=== PATIENT | female | born 1930 | race African-American/Black ===

== ENCOUNTER 2018-12-26 22:22 | Inpatient (IN) ==
[2018-12-26] MEDS ORDERED: D50W SYRINGE IV ONE (22:51)
[2018-12-27 00:18] LABS: BASO# 0.01 X1000 (0.0-0.2); BASO% 0.1 % (0.0-0.8); EOS# 0.33 X1000 (0.0-0.7); EOS% 4.2 % (0.0-10.0); HEMOGLOBIN 12.1 g/dL (12.0-16.0); LYMPH% 31.5 % (20.5-51.1); MCH 26.5 PG (27-31); MCHC 31.8 g/dL (33-37); MCV 83.2 FL (81-99); MONO# 0.81 X1000 (0.11-0.59); MONO% 10.2 % (1.7-9.3); NEUT# 4.29 X1000 (1.4-6.5); PLT 139 X1000 (130-400); RBC 4.57 XMIL (4.2-5.4); RDW 16.7 % (11.5-14.5); WBC 7.94 X1000 (4.8-10.8)
[2018-12-27 00:37] LABS: AGAP 14; ALB/GLOB RATIO 0.9; ALBUMIN 3.4 g/dL (3.5-5.0); ALKALINE PHOSPHATASE 66 U/L (32-104); BUN 47 mg/dL (8-22); CALCIUM 9.2 mg/dL (8.8-10.2); CHLORIDE 104 mmol/L (98-107); CK PROFILE 137 U/L (24-173); COSMO 298; CREATININE 2.7 mg/dL (0.5-0.9); ESTIMATED GFR 20; GLUCOSE 73 mg/dL (70-104); GOT 30 U/L (10-30); GPT 18 U/L (10-36); MAGNESIUM 2.9 mg/dL (1.5-2.7); POTASSIUM 5.6 mmol/L (3.5-5.1); SODIUM 144 mmol/L (136-145); TCO2 26 mmol/L (25-35); TOTAL BILIRUBIN < 0.15 mg/dL (0.20-1.00); TOTAL PROTEIN 7.4 g/dL (6.3-8.3)
[2018-12-27 00:45] LABS: URINE SOURCE CATH
[2018-12-27] MEDS ORDERED: CALCIUM GLUCONATE IV PUSH ONE (01:09)
[2018-12-27] MEDS ORDERED: KAYEXALATE PO ONE (01:09)
[2018-12-27] MEDS ORDERED: DUONEB (A & A) INH ONE (01:09)
[2018-12-27 01:20] LABS: BILIRUBIN URINE NEGATIVE (NEGATIVE); BLOOD URINE NEGATIVE (NEGATIVE); COLOR YELLOW; GLUCOSE URINE NEGATIVE (NEGATIVE); KETONE URINE NEGATIVE (NEGATIVE); LEUKOCYTES URINE LARGE (NEGATIVE); NITRITE URINE NEGATIVE (NEGATIVE); PH URINE 5.5; PROTEIN URINE TRACE mg/dL (NEGATIVE); SP GRAVITY URINE 1.016; TURBIDITY URINE HAZY (CLEAR); UR EPITHELIAL CELLS <10 /HPF (<10); URINE BACTERIA 4+ /HPF; URINE RBC <10 /HPF (<10); URINE WBC TNTC /HPF (<10); UROBILINOGEN URINE 3 mg/dL (NORMAL)
--- NOTE | 2018-12-27 01:37 | PROVIDER DOCUMENTATION ---
This chart was entered by Teresa Robles Scribe, acting as scribe for Anastacio Stone MD. HPI-Cardiac General - General Chief Complaint: Palpitations Stated Complaint: chest pain Time Seen by Provider: 12/26/18 22:26 Source: patient Allergies/Adverse Reactions: Patient Allergies Allergy/AdvReac Type Severity Reaction Status Date / Time No Known Allergies Allergy Verified 10/07/18 08:07 Home Medications: Home Medication List Medication Instructions Recorded Confirmed Last Taken Type Amlodipine [Norvasc] 5 mg PO DAILY 09/15/14 10/15/18 04/12/18 History Furosemide 20 mg PO DAILY 09/15/14 10/15/18 04/12/18 History Lisinopril 20 mg PO DAILY 09/15/14 10/15/18 04/12/18 History PRAVAstatin [Pravachol] 40 mg PO QHS 09/15/14 10/15/18 04/12/18 History Aspirin EC 81 mg PO DAILY 04/13/18 10/15/18 04/12/18 History Insulin NPH Hum/Reg Insulin Hm 10 unit SQ BID 04/13/18 10/15/18 Unknown History [Humulin 70-30 Vial] Donepezil [Aricept] 10 mg PO QHS tablet 04/17/18 10/15/18 Unknown Rx Gabapentin [Neurontin] 100 mg PO BID capsule 04/17/18 10/15/18 Unknown Rx Memantine Xr [Namenda Xr] 28 mg PO DAILY capsule 04/17/18 10/15/18 Unknown Rx Ondansetron [Zofran Odt] 8 mg PO Q6H PRN PRN #12 tab.rapdis 10/07/18 10/15/18 Unknown Rx Amlodipine [Norvasc] 5 mg PO DAILY tablet 10/20/18 Unknown Rx Aspirin EC 81 mg PO DAILY tablet 10/20/18 Unknown Rx Clonidine [Catapres] 0.1 mg PO TID tablet 10/20/18 Unknown Rx Donepezil [Aricept] 10 mg PO QHS tablet 10/20/18 Unknown Rx Gabapentin [Neurontin] 100 mg PO BID capsule 10/20/18 Unknown Rx LISINOpril [Prinivil] 40 mg PO DAILY tablet 10/20/18 Unknown Rx Memantine Xr [Namenda Xr] 28 mg PO DAILY capsule 10/20/18 Unknown Rx PRAVAstatin [Pravachol] 40 mg PO QHS tablet 10/20/18 Unknown Rx - History of Present Illness-Cardiac Nature of Presenting Problem: Pt comes to ED via EMS. Pt was having chest pains at home and called EMS. EMS found that she has a heart rate in the 30's. She was given atropine 0.5mg and brought to ED . Chest pain has since resolved. Pt is poor historian and has hx of dementia and CVA/TIA Location: reports: other (No chest pain in ED) Quality of Pain: reports: none Severity in ED: mild Onset/Duration: just prior to arrival Timing: gone now Context/Activities at Onset: reports: none Modifying Factors: improves with: nothing History of arrythmia: reports: none Associated Symptoms: reports: denies symptoms Similar Symptoms Previously?: No Recently Seen Here or By Another Healthcare Provider: No Review of Systems - Adult - REVIEW OF SYSTEMS - ADULT ROS:: ROS per family Constitutional: reports: no symptoms reported Eyes: reports: no symptoms reported Ears, Nose, Mouth & Throat: reports: no symptoms reported Cardiovascular: reports: chest pain. denies: edema Respiratory: denies: chronic cough, cough Gastrointestinal: reports: no symptoms reported. denies: diarrhea, nausea, vomiting Genitourinary: reports: no symptoms reported Musculoskeletal: reports: no symptoms reported Integumentary: reports: no symptoms reported Neurological: reports: no symptoms reported. denies: dizziness/vertigo, headache/migraines Allergic/Immunologic: reports: no symptoms reported All Other Systems: Reviewed and Negative Past History - Adult - PAST MEDICAL HISTORY-ADULT Review of Records: reports: Old Records Reviewed, Nursing Assessment Review, Medications Reviewed, Social history reviewed & non-contributory. Major Childhood Illnesses: reports: denies history Cardiovascular: reports: cardiac disease, CHF, HTN, hyperlipidemia Respiratory: reports: denies history Gastrointestinal: reports: denies history Obstetrical/Gynecological: reports: denies history Genitourinary: reports: denies history Musculoskeletal: reports: denies history Neurological: reports: Alzheimer's, dementia, TIA Psychiatric: reports: denies history Endocrine/Immune: reports: Diabetes Other Conditions: reports: denies history - PRIOR SURGERIES/PROCEDURES Surgical/Procedure History: reports: hysterectomy - IMMUNIZATION STATUS Childhood Immunizations: See Nurse Assessment Flu Vaccine: See Nurse Assessment - FAMILY HISTORY Family History: reviewed, not pertinent - SOCIAL HISTORY Smoking: denies, non-smoker Substance Use: none/never Alcohol Use Frequency: never Living Situation: family Physical Exam-General - PHYSICAL EXAM-ADULT Initial Vital Signs Reviewed: Yes - CONSTITUTIONAL General Appearance: alert (pt is oriented to person), other (frail looking patient ,) - EYES Eyes: PERRL/EOMI - HEAD, EARS, NOSE, MOUTH & THROAT HENMT: normocephalic/atraumatic, moist mucous membranes - NECK Neck: non-tender, full range of motion, supple, normal inspection - RESPIRATORY Respiratory: chest non-tender, decreased breath sounds - CARDIOVASCULAR Cardiovascular: normal peripheral pulses, no edema, other (irregular heart rate) - GASTROINTESTINAL (ABDOMEN) Abdominal Exam: normal bowel sounds, non tender, soft - MUSCULOSKELETAL Extremity: other (slow to move; muscle strength of 3/5 in all 4 extremities) - SKIN Integumentary: normal color, warm/dry - PSYCHIATRIC Psych/Mental Status: negative: oriented x 3 (pt only oriented to person during exam) Progress - PLAN OF CARE/RESULTS Progress/Plan/Lab Results: Vital Signs - 8 hr 12/26/18 22:38 12/26/18 22:40 12/26/18 22:41 Temperature Pulse Rate 108 H 81 Respiratory Rate 14 16 Blood Pressure 140/52 O2 Sat by Pulse Oximetry 98 95 96 12/26/18 22:43 12/26/18 22:50 12/26/18 22:51 Temperature 97.9 F Pulse Rate 80 79 76 Respiratory Rate 14 12 19 Blood Pressure 140/52 120/44 O2 Sat by Pulse Oximetry 97 98 98 12/26/18 23:00 12/26/18 23:02 12/26/18 23:10 Temperature Pulse Rate 76 74 72 Respiratory Rate 13 15 14 Blood Pressure 104/50 O2 Sat by Pulse Oximetry 97 12/26/18 23:11 12/26/18 23:20 12/26/18 23:21 Temperature Pulse Rate 70 73 67 Respiratory Rate 16 20 16 Blood Pressure 110/53 117/55 O2 Sat by Pulse Oximetry 97 96 96 12/26/18 23:30 12/26/18 23:31 12/26/18 23:40 Temperature Pulse Rate 64 69 74 Respiratory Rate 18 17 21 Blood Pressure 122/71 O2 Sat by Pulse Oximetry 97 98 94 L 12/26/18 23:41 12/26/18 23:50 12/27/18 00:00 Temperature Pulse Rate 65 65 64 Respiratory Rate 13 15 14 Blood Pressure 121/53 O2 Sat by Pulse Oximetry 96 99 97 12/26/18 23:36 Influenza Screen - Final Nasopharyngeal Laboratory Results - last 24 hr 12/26/18 12/27/18 12/27/18 22:46 00:00 00:00 WBC 7.94 RBC 4.57 Hgb 12.1 Hct 38.0 MCV 83.2 MCH 26.5 L MCHC 31.8 L RDW Std Deviation 16.7 H Plt Count 139 MPV Not Reportable Neut % (Auto) 54.0 Lymph % (Auto) 31.5 Jewell % (Auto) 10.2 H Eos % (Auto) 4.2 Baso % (Auto) 0.1 Neut # (Auto) 4.29 Lymph # (Auto) 2.50 Jewell # (Auto) 0.81 H Eos # (Auto) 0.33 Baso # (Auto) 0.01 Sodium 144 Potassium 5.6 H Chloride 104 Carbon Dioxide 26 Anion Gap 14 BUN 47 H Creatinine 2.7 H Estimated GFR/1.73 m2 20 BUN/Creatinine Ratio 17 Glucose 73 POC Glucose 65 L D Calculated Osmolality 298 Calcium 9.2 Magnesium 2.9 H Total Bilirubin < 0.15 L AST 30 ALT 18 Alkaline Phosphatase 66 Creatine Kinase 137 Troponin T Sln-U-Pumonrccwfr Pept Total Protein 7.4 Albumin 3.4 L Globulin 4.0 Albumin/Globulin Ratio 0.9 Urine Source Urine Color Urine Turbidity Urine pH Ur Specific [place] Urine Protein Ur Glucose (Stick) Ur Ketones (Stick) Urine Blood Urine Nitrite Urine Bilirubin Urobilinogen Dipstick Urine Leukocytes Urine WBC (Auto) Urine RBC (Auto) U Epithel Cells (Auto) Urine Bacteria (Auto) 12/27/18 12/27/18 12/27/18 00:00 00:00 00:41 WBC RBC Hgb Hct MCV MCH MCHC RDW Std Deviation Plt Count MPV Neut % (Auto) Lymph % (Auto) Jewell % (Auto) Eos % (Auto) Baso % (Auto) Neut # (Auto) Lymph # (Auto) Jewell # (Auto) Eos # (Auto) Baso # (Auto) Sodium Potassium Chloride Carbon Dioxide Anion Gap BUN Creatinine Estimated GFR/1.73 m2 BUN/Creatinine Ratio Glucose POC Glucose Calculated Osmolality Calcium Magnesium Total Bilirubin AST ALT Alkaline Phosphatase Creatine Kinase Troponin T 0.023 Buo-B-Nvlilwjeidw Pept 1016 H Total Protein Albumin Globulin Albumin/Globulin Ratio Urine Source CATH Urine Color YELLOW Urine Turbidity HAZY Urine pH 5.5 Ur Specific [place] 1.016 Urine Protein TRACE A Ur Glucose (Stick) NEGATIVE Ur Ketones (Stick) NEGATIVE Urine Blood NEGATIVE Urine Nitrite NEGATIVE Urine Bilirubin NEGATIVE Urobilinogen Dipstick 3 A Urine Leukocytes LARGE A Urine WBC (Auto) TNTC A Urine RBC (Auto) <10 U Epithel Cells (Auto) <10 Urine Bacteria (Auto) 4+ Orders Category Date Time Status FSBS [Finger Stick Blood Sugar (ED)] DIRECTED Care 12/26/18 22:21 Active Nursing- Obtain EKG once Care 12/26/18 22:20 Active CHEST-PORTABLE [RAD] Stat Exams 12/26/18 22:53 Taken CBC WITH ELECTRONIC DIFF [HEME] Stat Lab 12/27/18 00:00 Completed CK PROFILE [SP CHEM] Stat Lab 12/27/18 00:00 Completed COMPREHENSIVE METABOLIC PANEL [CHEM] Stat Lab 12/27/18 00:00 Completed D-DIMER [COAG] Stat Lab 12/27/18 00:00 Received INFLUENZA SCREEN A/B Stat Lab 12/26/18 23:36 Completed MAGNESIUM [CHEM] Stat Lab 12/27/18 00:00 Completed PRO B-NATRIURETIC PEPTIDE Stat Lab 12/27/18 00:00 Completed PT [PROTIME WITH INR] [COAG] Stat Lab 12/27/18 00:00 Received PTT [COAG] Stat Lab 12/27/18 00:00 Received TROPONIN T Stat Lab 12/27/18 00:00 Completed URINALYSIS W/POSS RFLX CULT [URINALYSIS] Stat Lab 12/27/18 00:41 Completed URINE CULTURE [RM] Routine Lab 12/27/18 01:24 Received Albuterol 2.5MG/Ipratrop 0.5MG [Duoneb (A & A)] Med 12/27/18 01:09 Discontinued 3 ml INH NOW ONE Calcium Gluconate Med 12/27/18 01:09 Discontinued 1 gm IV PUSH NOW ONE Dextrose 50% Syringe [D50w Syringe] Med 12/26/18 22:51 Discontinued 50 ml IV NOW ONE Sodium Polystyrene [Kayexalate] Med 12/27/18 01:09 Discontinued 30 gm PO NOW ONE Aerosol Treatments Routine Oth 12/27/18 01:10 Active Aerosol Treatments Stat Oth 12/27/18 01:10 Active EKG [EKG] Stat Ther 12/26/18 22:20 Ordered Result Diagrams: 12/27/18 00:00 12/27/18 00:00 - EKG 1 Time of EKG reading by physician:: 22:31 EKG Read and Signed by:: Anastacio Stone EKG Interpretation (*Must complete 3 of following elements*): Abnormal (sinus rhythm with frequent premature ventricular complexes in a pattern of bigeminy, Minimal voltage criteria for LVH, may be normal variant. Borderline ECG) - XRAY 1 XRAY Study: Chest Impression: Abnormal (cardiac border on the left side is not well defined ; possible increased vascular congestion; pending official radiologist report) - CONSULTS/PCP/HOSPITALIST Notification #1 *Consult/PCP/Hospitalist*: Dr. Martin Time Discussed: 01:15 Consult Disposition: Admit Departure - Departure Date of Disposition Decision: 12/27/18 Time of Disposition Decision: 01:36 DIAGNOSIS: Hypoglycemia, Hyperkalemia, Bradycardia Acute renal failure Qualifiers: Acute renal failure type: unspecified Qualified Code(s): N17.9 - Acute kidney failure, unspecified UTI (urinary tract infection) Qualifiers: Urinary tract infection type: site unspecified Hematuria presence: without hematuria Qualified Code(s): N39.0 - Urinary tract infection, site not specified Disposition: ADMITTED INPATIENT 09 Certified Medical Emergency: Emergent Condition: Serious - Critical Care Note This patient required my direct & personal management of CC.: No Attestation - Physician/ JASMIN Attestation The physician spent face to face time with patient:: Yes Advanced Practice Provider documentation review:: Supervising physician onsite and consulted in the evaluation and care of this patient. The physician did have a face to face encounter with the patient. This chart was documented by the indicated scribe, (Teresa Robles Scribe) and accurately reflects the services I performed and decisions made by Chase garcia Kofi X., MD, as attested by the provider's signature.
[2018-12-27] MEDS ORDERED: NS 50 ML ONE (01:41)
[2018-12-27] MEDS ORDERED: NS 50 ML IV ONE (01:49)
[2018-12-27 02:25] LABS: INR 0.85; PROTIME 12.3 Seconds (11.0-16.0)
[2018-12-27 02:26] LABS: PTT 25.1 Seconds (22.3-41.8)
--- NOTE | 2018-12-27 04:01 | HISTORY AND PHYSICAL ---
PRIMARY CARE PHYSICIAN: Dr. Trevino. CHIEF COMPLAINT: Chest pain. HISTORY OF PRESENTING ILLNESS: This 88-year-old elderly female with a history of diabetes mellitus type 2, hypertension, Alzheimer's dementia, who was brought to the emergency department due to patient yelling out that she was having chest pain and also pain in her arm. Her family members called EMS and transported patient to the emergency department. The patient initially was found to have somewhat low blood glucose at home. She received insulin by her family prior to her developing the chest discomfort. She was seen in the ED. She was given D50 and it was also noted that she was mildly hyperkalemic. This was also treated in the ER. Due to her overall presenting symptoms, it was thought that she would need admission for further management. The patient is a poor historian and most of the history is obtained from previous records and other family members. PAST MEDICAL HISTORY: Include diabetes mellitus type 2 on insulin, hypertension, dementia, chronic kidney disease. PAST SURGICAL HISTORY: Hysterectomy. ALLERGIES: No known drug allergies. CURRENT MEDICATIONS: Include amlodipine 5 mg p.o. daily, aspirin 81 mg p.o. daily, clonidine 0.1 mg p.o. t.i.d., Aricept 10 mg p.o. at bedtime, furosemide 20 mg p.o. daily, gabapentin 100 mg p.o. b.i.d., insulin NPH 70/30 ten units subcutaneous b.i.d., lisinopril 40 mg p.o. daily, Namenda XR 28 mg p.o. daily, pravastatin 40 mg p.o. at bedtime. SOCIAL HISTORY: She is a former smoker. No history of alcohol or illicit drug use. FAMILY HISTORY: No history of coronary artery disease. REVIEW OF SYSTEMS: Fourteen point review of system as listed in HPI. Other systems negative. PHYSICAL EXAMINATION: GENERAL: Cooperative, friendly elderly female. She is resting more comfortably now. VITAL SIGNS: Temperature 97.9 degrees, pulse 80, respiration 14, blood pressure 140/52. HEENT: Atraumatic, normocephalic. Extraocular movements intact. PERRLA. NECK: No masses. CHEST: Clear to auscultation. CARDIOVASCULAR: Regular rate and rhythm. ABDOMEN: Soft, positive bowel sounds. EXTREMITIES: No edema. NEUROLOGIC: She is awake, alert, oriented x1. GENITOURINARY: No bladder distention. SKIN: Warm. LABORATORIES AND STUDIES: WBC 7.94, hemoglobin 12.1, hematocrit 38.0, platelets 139,000. Sodium 144, potassium 5.6, chloride 104, CO2 is 26, BUN is 47, creatinine is 2.7, glucose was initially 65. Troponin 0.023. ASSESSMENT: This is an 88-year-old female who is basically bed bound with a history of diabetes mellitus type 2, hypertension and Alzheimer's dementia, who was brought to the emergency department due to patient yelling out that she was in chest pain after she received insulin. She was brought to the emergency department. She was mildly hypoglycemic. She was given an amp of D50. She was also treated for mild hyperkalemia. Due to her presenting symptoms, she will need admission for further management. 1. Chest pain, atypical. 2. Diabetes mellitus type 2 with hypoglycemic episode. 3. Acute kidney injury on chronic kidney disease. 4. Possible urinary tract infection. 5. Mild hyperkalemia. 6. Hypertension. 7. Dementia. PLAN: 1. We will admit patient to medical floor with telemetry. 2. Continue with cardiac workup. Check EKG, serial cardiac enzymes. Have patient continue on aspirin. We will use sublingual nitroglycerin and morphine p.r.n. chest pain. 3. We will monitor blood glucose closely. 4. We will monitor her renal function. Continue with gentle hydration. 5. We will check urine cultures. Start patient on IV antibiotics. 6. Monitor her electrolytes. 7. We will monitor blood pressure. Resume antihypertensive agents. 8. Restart other home medications. 9. We will put patient on DVT prophylaxis with SCDs. 10. We will continue to follow, and reassess and make further recommendation based on patient's clinical course. cc: MD Deonte Velazquez MD
[2018-12-27] MEDS: ROCEPHIN 1 GM in NS 50 ML IV SCH (04:26)
[2018-12-27] MEDS: NS 1,000 ML IV SCH ×2 (04:26→16:38)
--- NOTE | 2018-12-27 07:24 | Diag Imaging Result Doc PS360 ---
CHEST-PORTABLE - 12/26/2018 INDICATION: chest pain COMPARISON: 10/15/2018 FINDINGS: There is some faint linear atelectasis in the right upper lobe. No focal infiltrates, pneumothorax, or pleural effusion. Heart size is normal. IMPRESSION: Faint linear atelectasis in the right upper lobe but no acute disease. Electronically signed by Erick Hinkle 12/27/2018 7:22 AM
[2018-12-27] MEDS: NAMENDA XR PO SCH (10:45)
[2018-12-27] MEDS: PRINIVIL PO SCH (10:45)
[2018-12-27] MEDS: LASIX PO SCH (10:46)
[2018-12-27] MEDS: CATAPRES PO SCH ×3 (10:46→21:05)
[2018-12-27] MEDS: NEURONTIN PO SCH ×2 (10:46→21:05)
[2018-12-27] MEDS: ASPIRIN EC PO SCH (10:46)
[2018-12-27] MEDS: NORVASC PO SCH (10:47)
--- NOTE | 2018-12-27 13:48 | PROGRESS NOTE ---
DATE: 12/27/2018 VITAL SIGNS: Temperature 98.1 degrees, heart rate 71, respirations 16, blood pressure 151/57. O2 saturation on room air 100%. The patient is an 88-year-old black female who presented early this a.m. to the emergency room with chest pain. Chest pain started shortly after receiving insulin. In the emergency room, her blood sugar was low at 65. She was given D50. LABORATORY: Hemoglobin 12.1, hematocrit 38.0, white blood count 7900, potassium 5.6, BUN 47, creatinine 2.7. ProBNP 1016, total protein 7.4, albumin 3.4. Troponin T 0.012. Chest x-ray showed faint linear atelectasis at the right upper lobe but no acute disease. She states currently that her chest pain has resolved. Initially at home, she had some pain in her left shoulder going down her left arm. There is a long history of diabetes, insulin dependent. She also has dementia and chronic kidney disease. She was hospitalized 10/15/2018 with nausea and vomiting and acute mental change. BUN at that time was 50 with creatinine 2.7. After hydration in the hospital, her renal function improved to BUN 33 and creatinine 1.8. Exam reveals no chest wall tenderness to palpation. Heart is regular in rate and rhythm with no murmur or gallop. Lungs are clear. Urinalysis showed large amount of WBCs. She is currently on Rocephin IV and urine culture has been obtained. PLAN: Continue serial EKG and enzymes. cc: MD Deonte Mann MD
[2018-12-27] MEDS ORDERED: HUMULIN 70/30 SUBQ ONE (16:57)
[2018-12-27] MEDS ORDERED: INSULIN PEN NEEDLES ONE (18:06)
[2018-12-27] MEDS: ARICEPT PO SCH (21:05)
[2018-12-27] MEDS: PRAVACHOL PO SCH (21:05)
[2018-12-28] MEDS: ROCEPHIN 1 GM in NS 50 ML IV SCH (03:41)
[2018-12-28] MEDS: NS 1,000 ML IV SCH (03:42)
[2018-12-28 08:05] LABS: CREATININE 1.8 mg/dL (0.5-0.9)
[2018-12-28] MEDS: NEURONTIN PO SCH ×2 (08:16→20:30)
[2018-12-28] MEDS: LASIX PO SCH (08:16)
[2018-12-28] MEDS: CATAPRES PO SCH ×3 (08:16→20:30)
[2018-12-28] MEDS: NAMENDA XR PO SCH (08:16)
[2018-12-28] MEDS: NORVASC PO SCH (08:16)
[2018-12-28] MEDS: ASPIRIN EC PO SCH (08:16)
[2018-12-28] MEDS: PRINIVIL PO SCH (08:17)
[2018-12-28] MEDS: HUMULIN 70/30 SUBQ SCH ×2 (09:00→22:12)
--- NOTE | 2018-12-28 12:22 | PROGRESS NOTE ---
DATE: 12/28/2018 OBJECTIVE: Vital signs: Stable with temperature 98.1 degrees, heart rate 69, respiration 18, blood pressure 168/74, O2 saturation on room air 97%. LABORATORY: Sodium 146, potassium 4, BUN 33, creatinine 1.8, glucose 161, calcium 8. Her blood sugar dropped early this morning to 42 and she required D50. She has had no further chest pain. The last troponin was less than 0.01. Urine culture is pending. She is on Rocephin IV. PLAN: Continue current treatment. Hopefully she can go home tomorrow when urine culture results show sensitivities. cc: MD Deonte Mann MD
[2018-12-28] MEDS: ARICEPT PO SCH (20:30)
[2018-12-28] MEDS: PRAVACHOL PO SCH (20:30)
[2018-12-28] MEDS: KEFLEX PO SCH (20:31)
[2018-12-29] MEDS: KEFLEX PO SCH (05:05)
--- NOTE | 2018-12-29 08:07 | EKG Report ---
Test Performed on : 12/28/2018 06:16:03 AM Test Reason : chest pain Blood Pressure : / mmHG Vent. Rate : 070 BPM Atrial Rate : 070 BPM P-R Int : 152 ms QRS Dur : 090 ms QT Int : 468 ms P-R-T Axes : 012 -08 047 degrees QTc Int : 505 ms Sinus rhythm. with occasional premature ventricular complexes. Nonspecific T wave abnormality Prolonged QT Abnormal ECG When compared with ECG of 26-DEC-2018 22:31, (Unconfirmed) No significant change was found Confirmed by Shaniqua SALES, Lev Campbell ([id number]) on 12/29/2018 8:53:32 AM
--- NOTE | 2018-12-29 09:48 | PROGRESS NOTE ---
DATE: 12/29/2018 Ms Slater has hypoglycemia. Blood sugar was 47-42 when she came in. It is coming back up. It is 238. She is still very drowsy. Vital signs are stable. Urine culture so far has grown E. coli. She is on ceftriaxone, which we will continue as it is sensitive to cefazolin. cc: Deonte Trevino MD
[2018-12-29] MEDS: ASPIRIN EC PO SCH (10:43)
[2018-12-29] MEDS: PRINIVIL PO SCH (10:44)
[2018-12-29] MEDS: CATAPRES PO SCH ×4 (10:45→18:15)
[2018-12-29] MEDS: NEURONTIN PO SCH ×2 (10:45→20:28)
[2018-12-29] MEDS: NORVASC PO SCH (10:46)
[2018-12-29] MEDS: NAMENDA XR PO SCH (10:46)
[2018-12-29] MEDS: LASIX PO SCH (10:46)
[2018-12-29] MEDS: HUMULIN 70/30 SUBQ SCH ×2 (10:47→20:28)
[2018-12-29] MEDS: ROCEPHIN 1 GM in NS 50 ML IV SCH ×2 (10:57→11:05)
[2018-12-29] MEDS ORDERED: INSULIN PEN NEEDLES ONE ×2 (12:07→20:11)
[2018-12-29] MEDS: ARICEPT PO SCH (20:28)
[2018-12-29] MEDS: PRAVACHOL PO SCH (20:28)
[2018-12-30] MEDS: NAMENDA XR PO SCH (08:46)
[2018-12-30] MEDS: PRINIVIL PO SCH (08:46)
[2018-12-30] MEDS: NORVASC PO SCH (08:46)
[2018-12-30] MEDS: NEURONTIN PO SCH ×2 (08:47→22:10)
[2018-12-30] MEDS: LASIX PO SCH (08:47)
[2018-12-30] MEDS: ASPIRIN EC PO SCH (08:47)
[2018-12-30] MEDS: CATAPRES PO SCH ×3 (08:47→17:41)
[2018-12-30] MEDS: ROCEPHIN 1 GM in NS 50 ML IV SCH ×2 (08:47→08:50)
[2018-12-30] MEDS: HUMULIN 70/30 SUBQ SCH ×2 (08:47→22:11)
--- NOTE | 2018-12-30 09:02 | PROGRESS NOTE ---
DATE: 12/30/2018 SUBJECTIVE: Ms. Slater he is doing fairly well now. She is more alert. Her urine culture is growing E. coli. It is sensitive to cefazolin. She has been getting IV Rocephin, which we will continue. I want to discuss with children or responsible person as she has a significant degree of Alzheimer's dementia. Her vital signs are stable today. cc: Deonte Trevino MD
[2018-12-30] MEDS: PRAVACHOL PO SCH (22:10)
[2018-12-30] MEDS: ARICEPT PO SCH (22:10)
--- NOTE | 2018-12-31 09:02 | PROGRESS NOTE ---
DATE: 12/31/2018 Ms. Slater is very drowsy today. Her blood sugars have been stable. We are probably going to stop most of the sedations, which the only sedation we can think of is the clonidine, which I am going to stop. She is getting some gabapentin which we will stop today and see the effects. She is getting ceftriaxone for acute UTI. -0 cc: Deonte Trevino MD
[2018-12-31] MEDS: ROCEPHIN 1 GM in NS 50 ML IV SCH ×2 (09:47→09:58)
[2018-12-31] MEDS: PRINIVIL PO SCH (09:47)
[2018-12-31] MEDS: ASPIRIN EC PO SCH (09:47)
[2018-12-31] MEDS: NORVASC PO SCH (09:47)
[2018-12-31] MEDS: LASIX PO SCH (09:48)
[2018-12-31] MEDS: NAMENDA XR PO SCH (09:48)
[2018-12-31] MEDS: HUMULIN 70/30 SUBQ SCH ×3 (09:49→22:06)
[2018-12-31] MEDS: PRAVACHOL PO SCH (22:05)
[2018-12-31] MEDS: ARICEPT PO SCH (22:05)
[2019-01-01] MEDS: NORVASC PO SCH (09:21)
[2019-01-01] MEDS: NAMENDA XR PO SCH (09:21)
[2019-01-01] MEDS: ASPIRIN EC PO SCH (09:21)
[2019-01-01] MEDS: LASIX PO SCH (09:21)
[2019-01-01] MEDS: PRINIVIL PO SCH (09:21)
[2019-01-01] MEDS: HUMULIN 70/30 SUBQ SCH ×2 (09:22→21:07)
[2019-01-01] MEDS: ROCEPHIN 1 GM in NS 50 ML IV SCH (10:43)
--- NOTE | 2019-01-01 15:02 | PROGRESS NOTE ---
DATE: 01/01/2019 The patient has been refusing to start her IV, so she did not have her IV Rocephin for the last 2 days. At present, she is agreeing to get the IV done. If she cannot, then will get Rocephin IM. I did discuss with the family members and they want her at rehab. The last time she was at rehab at [facility]. -7 cc: Deonte Trevino MD
[2019-01-01] MEDS: ARICEPT PO SCH (21:07)
[2019-01-01] MEDS: PRAVACHOL PO SCH (21:07)
--- NOTE | 2019-01-02 05:25 | DISCHARGE SUMMARY ---
ADMISSION DATE: 12/29/2018 DISCHARGE DATE: 01/01/2019 HISTORY: The patient's tentative date of discharge is probably 01/02/2019. Ms. Slater, who is an 88-year-old female, became very unresponsive at home. She was drowsy, confused. She is a known case of Alzheimer's dementia. However, the drowsiness was new. She also has insulin-dependent diabetes and severe hypertension. She was brought to the emergency room, was found to be hypoglycemic. Her CBC was unremarkable. INR was 0.85. Blood sugars were done. Blood sugar at one point was 465. BUN and creatinine have been elevated, BUN 47, creatinine 2.7. ProBNP was 1016. Troponin was 0.012 and 0.023. The blood sugar finally came back up, and again it is fluctuating. It has gone down as low as 42. Urinalysis revealed too numerous WBCs. Urine culture grew E. coli. It was sensitive to amikacin and cefazolin. Cefazolin was continued. EKG revealed regular sinus rhythm, nonspecific T-wave changes present. Prolonged QT interval was noted. COURSE IN THE HOSPITAL: She was given IV fluids, which she pulled out, and she has not been an easy patient to start an IV. She has been refusing. Given antibiotics, could only be given for 2 to 3 days. This morning, we decided that if IV cannot be started, we will give antibiotic by mouth. Hypoglycemia was partly corrected intermittently. She had hypoglycemia because she was not eating. Her family was contacted. After 2 days we got in touch with them, and they wanted to send her to the rehab. Tentatively, there will be a bed tomorrow at [facility] where she went before, and she will be discharged. FINAL DIAGNOSES: 1. Acute mental status change, probably metabolic encephalopathy from hypoglycemia. 2. Acute urinary tract infection with E. coli. 3. Hypertension. 4. Dementia. FOLLOWUP: [facility] cc: Deonte Trevino MD
[2019-01-02] MEDS: NAMENDA XR PO SCH (08:49)
[2019-01-02] MEDS: NORVASC PO SCH (08:49)
[2019-01-02] MEDS: PRINIVIL PO SCH (08:49)
[2019-01-02] MEDS: ASPIRIN EC PO SCH (08:49)
[2019-01-02] MEDS: LASIX PO SCH (08:49)
[2019-01-02] MEDS: ROCEPHIN 1 GM in NS 50 ML IV SCH (08:50)
[2019-01-02] MEDS: HUMULIN 70/30 SUBQ SCH (08:50)
[2019-01-02 11:32] VITALS: BP 148/49
== END 2019-01-02 15:11 | DRG 313 ==
LOC: SUPCPDRO → ED 22:22 → 3N 12-27 03:25 → INTOOBSV 12-27 03:25 → SUATTDRO 12-27 03:25
PROVIDERS: ADMIT Internal Medicine; ATTEND Internal Medicine
CPT/HCPCS: 51701; 71010; 71045; 80048; 80053; 81001; 82550; 82948; 83735; 83880; 84484; 85025; 85379; 85610; 85730; 87077; 87088; 87186; 87275; 87276; 87804; 93005; 93010; 94640; 96361; 96374; 96375; 97162; 97530; 99285; A9270; J0610; J0696; J7030; P9612; XXXXX

== ENCOUNTER 2019-06-23 10:34 | Emergency (ER) ==
[2019-06-23] MEDS ORDERED: NS 1,000 ML ONE ×3 (10:44→12:53)
[2019-06-23] MEDS ORDERED: VERSED ONE (10:50)
[2019-06-23] MEDS ORDERED: QUELICIN ONE (10:51)
[2019-06-23] MEDS ORDERED: VERSED 100 MG in NS 80 ML IV SCH (11:00)
[2019-06-23] MEDS ORDERED: DOPAMINE 800 MG/D5W 800 MG/500 ML IV.SOLN ONE (11:17)
--- NOTE | 2019-06-23 11:58 | PROVIDER DOCUMENTATION ---
This chart was entered by Helen Ricci Scribe, acting as scribe for Mesfin Lloyd MD. HPI-Neurological Disorder - General Stated Complaint: unresponsive Time Seen by Provider: 06/23/19 10:38 Source: EMS Allergies/Adverse Reactions: Patient Allergies Allergy/AdvReac Type Severity Reaction Status Date / Time No Known Allergies Allergy Verified 10/07/18 08:07 Home Medications: Home Medication List Medication Instructions Recorded Confirmed Last Taken Type Amlodipine [Norvasc] 5 mg PO DAILY 09/15/14 12/27/18 04/12/18 History Furosemide 20 mg PO DAILY 09/15/14 12/27/18 04/12/18 History PRAVAstatin [Pravachol] 40 mg PO QHS 09/15/14 12/27/18 04/12/18 History Aspirin EC 81 mg PO DAILY 04/13/18 12/27/18 04/12/18 History Insulin NPH Hum/Reg Insulin Hm 10 unit SQ BID 04/13/18 12/27/18 Unknown History [Humulin 70-30 Vial] Donepezil [Aricept] 10 mg PO QHS tablet 04/17/18 12/27/18 Unknown Rx Gabapentin [Neurontin] 100 mg PO BID capsule 04/17/18 12/27/18 Unknown Rx Memantine Xr [Namenda Xr] 28 mg PO DAILY capsule 04/17/18 12/27/18 Unknown Rx Clonidine [Catapres] 0.1 mg PO TID tablet 10/20/18 12/27/18 Unknown Rx LISINOpril [Prinivil] 40 mg PO DAILY tablet 10/20/18 12/27/18 Unknown Rx L.acidoph,Paracasei, B.lactis 1 each PO HS 12/27/18 12/27/18 Unknown History [Probiotic] Nitrofurantoin Iron/Macrocryst 100 mg PO BID #20 cap 01/02/19 Unknown Rx [Macrobid] - History of Present Illness-Neuro Nature of Presenting Problem: Patient is a 88 year old female who presents to the ED via EMS with altered mental status. EMS states nursing staff reported patient went to therapy and when she returned she became unresponsive. 1042 - IO placed in left lower leg. 1044 - NS hung. FSBS was 356. 1051 - 5 mg of Versed given. 1052 - 100 mg of Succ given. 1054 - intubation placed. 1105 - Dr. Lloyd consulted with patient's daughter, REHANA, about patient's current condition. Daughter states she wants the patient to be a full code. 1117 - Dopamine drip hung. 1118 - 1 mg of Atropine given. Severity: reports: severe Onset/Duration: reports: unsure Timing: reports: still present, getting worse Context: reports: other (AMS) Character of Altered Mental Status: reports: unresponsive Associated Symptoms: reports: denies symptoms Similar Symptoms Previously?: No Recently seen or treated by another doctor?: No Review of Systems - Adult - REVIEW OF SYSTEMS - ADULT ROS:: unobtainable per condition Constitutional: reports: no symptoms reported Eyes: reports: no symptoms reported Ears, Nose, Mouth & Throat: reports: no symptoms reported Cardiovascular: reports: no symptoms reported Respiratory: reports: no symptoms reported Gastrointestinal: reports: no symptoms reported Genitourinary: reports: no symptoms reported Musculoskeletal: reports: no symptoms reported Integumentary: reports: no symptoms reported Neurological: reports: no symptoms reported Psychiatric: reports: no symptoms reported Endocrine: reports: no symptoms reported Hematologic/Lymphatic: reports: no symptoms reported Allergic/Immunologic: reports: no symptoms reported All Other Systems: Reviewed and Negative Past History - Adult - PAST MEDICAL HISTORY-ADULT Review of Records: reports: Old Records Reviewed, Nursing Assessment Review, Medications Reviewed, Social history reviewed & non-contributory. Major Childhood Illnesses: reports: denies history Cardiovascular: reports: cardiac disease, CHF, HTN, hyperlipidemia Respiratory: reports: denies history Gastrointestinal: reports: denies history Obstetrical/Gynecological: reports: denies history Genitourinary: reports: kidney disease Musculoskeletal: reports: denies history Neurological: reports: Alzheimer's, CVA, dementia, TIA Psychiatric: reports: denies history Endocrine/Immune: reports: Diabetes Other Conditions: reports: denies history - PRIOR SURGERIES/PROCEDURES Surgical/Procedure History: reports: hysterectomy - IMMUNIZATION STATUS Childhood Immunizations: See Nurse Assessment Flu Vaccine: See Nurse Assessment - FAMILY HISTORY Family History: reviewed, not pertinent - SOCIAL HISTORY Smoking: cigarettes (former) Living Situation: care facility (SNF) Physical Exam- Neurological - Physical Exam-Neuro General Appearance: other (unresponsive) HENMT: normocephalic/atraumatic, moist mucous membranes. negative: angioedema Head Injury: no evidence of injury. negative: active bleeding, lacerations Respiratory: chest non-tender, lungs clear, normal breath sounds. negative: scrap baler ckles, rhonchi Cardiovascular: normal peripheral pulses, regular rate, rhythm. negative: tachycardia Extremity: other (IO present to left lower leg.). negative: deformity, erythema diver's tender Exam: other (unable to assess per patient's condition) Coordination/Gait: other (unable to assess per patient's condition) Motor/Sensory: other (unable to assess per patient's condition) Neurologic: other (unable to assess per patient's condition) Integumentary: normal color, normal turgor. negative: diaphoresis Psych/Mental Status: other (unable to assess per patient's condition) Progress - PLAN OF CARE/RESULTS Progress/Plan/Lab Results: Vital Signs - 8 hr 06/23/19 11:13 06/23/19 11:23 06/23/19 11:31 Pulse Rate 62 61 61 Respiratory Rate 16 Blood Pressure 66/44 70/31 66/26 06/23/19 11:33 06/23/19 11:36 06/23/19 11:40 Pulse Rate 75 61 61 Respiratory Rate Blood Pressure 75/24 68/24 96/44 06/23/19 11:49 06/23/19 12:05 06/23/19 12:23 Pulse Rate 60 60 61 Respiratory Rate 13 Blood Pressure 75/46 83/51 46/38 Laboratory Results - last 24 hr 06/23/19 06/23/19 06/23/19 11:10 11:10 11:10 WBC 9.92 RBC 3.62 L Hgb 9.5 L Hct 31.0 L MCV 85.6 MCH 26.2 L MCHC 30.6 L RDW Std Deviation 17.5 H Plt Count 167 MPV Not Reportable Immature Gran % (Auto) 0.7 H Neut % (Auto) 46.0 Lymph % (Auto) 48.5 Iron % (Auto) 3.6 Eos % (Auto) 1.0 Baso % (Auto) 0.2 Immature Gran # (Auto) 0.07 H Neut # (Auto) 4.56 Lymph # (Auto) 4.81 H Iron # (Auto) 0.36 Eos # (Auto) 0.10 Baso # (Auto) 0.02 Specimen Type Sample Site pH pCO2 pO2 HCO3 Base Excess Oxyhemoglobin ABG O2 Sat (Calculated) ABG O2 Saturation ABG Carboxyhemoglobin ABG Methemoglobin Brad Test A-a O2 Difference Total Hemoglobin Lactate Blood Gas Modality Spontaneous Rate FiO2 % Tidal Volume PEEP Sodium 146 H Potassium 5.2 H Chloride 108 H Carbon Dioxide 16 L Anion Gap 22 BUN 30 H Creatinine 1.5 H Estimated GFR/1.73 m2 40 BUN/Creatinine Ratio 20 Glucose 315 H Calculated Osmolality 309 Calcium 8.5 L Total Bilirubin 0.43 AST 14 ALT 12 Alkaline Phosphatase 51 Troponin T [id number]-[id number] Pept 2180 H Total Protein 5.7 L Albumin 2.8 L Globulin 2.9 Albumin/Globulin Ratio 1.0 06/23/19 06/23/19 11:10 11:57 WBC RBC Hgb Hct MCV MCH MCHC RDW Std Deviation Plt Count MPV Immature Gran % (Auto) Neut % (Auto) Lymph % (Auto) Iron % (Auto) Eos % (Auto) Baso % (Auto) Immature Gran # (Auto) Neut # (Auto) Lymph # (Auto) Iron # (Auto) Eos # (Auto) Baso # (Auto) Specimen Type ARTERIAL Sample Site L BRACHIAL pH 7.20 L pCO2 30 L pO2 579 H HCO3 13.3 L Base Excess -15.0 L Oxyhemoglobin 98.4 ABG O2 Sat (Calculated) 15.1 ABG O2 Saturation 100.7 H ABG Carboxyhemoglobin 1.40 ABG Methemoglobin 0.9 Brad Test NO A-a O2 Difference 97.0 Total Hemoglobin 9.7 L Lactate 8.10 H* Blood Gas Modality VENTILATOR Spontaneous Rate 16 FiO2 % 100.0 Tidal Volume 450 PEEP 5.0 Sodium Potassium Chloride Carbon Dioxide Anion Gap BUN Creatinine Estimated GFR/1.73 m2 BUN/Creatinine Ratio Glucose Calculated Osmolality Calcium Total Bilirubin AST ALT Alkaline Phosphatase Troponin T 0.027 Dvm-H-Nwfwvtxknyk Pept Total Protein Albumin Globulin Albumin/Globulin Ratio Orders Category Date Time Status Admit - [facility] Routine AdmDCTranf 06/23/19 11:46 Active Call Admitting on Arrival AT ADMISSION Care 06/23/19 13:26 Active Code [Resuscitation Status] Routine Care 06/23/19 11:45 Ordered Neurological Check Q2H Care 06/23/19 13:26 Active Nursing- Obtain EKG ONCE Care 06/23/19 11:44 Active Vital Signs Order ROUTINE Care 06/23/19 13:26 Active Z-Document. for Tele Applied ORDERED Care 06/23/19 13:26 Active CHEST/ABD TUBE PLACEMENT [RAD] Stat Exams 06/23/19 11:39 Completed ABG [RESP] Routine Lab 06/23/19 11:57 Completed CBC WITH ELECTRONIC DIFF [HEME] Stat Lab 06/23/19 11:10 Completed COMPREHENSIVE METABOLIC PANEL [CHEM] Stat Lab 06/23/19 11:10 Completed PRO B-NATRIURETIC PEPTIDE Stat Lab 06/23/19 11:10 Completed TROPONIN T Stat Lab 06/23/19 11:10 Completed URINALYSIS [URINALYSIS] Stat Lab 06/23/19 11:44 Uncollected 0.9% Sodium Chloride Inj [Ns] 1,000 ml Med 06/23/19 10:44 Discontinued .ROUTE As directed 0.9% Sodium Chloride Inj [Ns] 1,000 ml Med 06/23/19 11:12 Discontinued .ROUTE As directed 0.9% Sodium Chloride Inj [Ns] 80 ml Med 06/23/19 11:00 Discontinued Midazolam [Versed] 100 mg IV As Directed mls/hr Dextrose 5%-0.45% NaCl Inj [D5 1/2 Ns] 250 ml Med 06/23/19 12:00 Active Norepinephrine [Levophed] 8 mg IV As Directed mls/hr Dextrose 5%-0.45% NaCl Inj [D5 1/2 Ns] 250 ml Med 06/23/19 12:00 Discontinued Norepinephrine [Levophed] 8 mg IV As Directed mls/hr Dextrose 5%-Water Inj [D5w] 250 ml Med 06/23/19 12:00 Discontinued Epinephrine 4 mg IV As Directed mls/hr Dopamine 800 mg/D5w Med 06/23/19 11:17 Discontinued 800 mg in 500 ml .ROUTE As directed Dopamine 800 mg/D5w Med 06/23/19 12:00 Active 800 mg in 500 ml IV As Directed mls/hr Midazolam [Versed] Med 06/23/19 10:50 Discontinued 5 mg .ROUTE .STK-MED ONE Succinylcholine [Quelicin] Med 06/23/19 10:51 Discontinued 200 mg .ROUTE .STK-MED ONE Oxygen Device Routine Oth 06/23/19 13:26 Active Telemetry [OM.EQ] Routine Oth 06/23/19 13:26 Active EKG [EKG] Stat Ther 06/23/19 11:44 Draft Transfer/Admit Order [TRANSFER] Routine Transfer 06/23/19 11:47 Completed 1121 - Dr. Lloyd consulted with Dr. Li about patient. Dr. Li states protocol is not being followed, patient needs to be transferred to [facility]. 1124 - Dr. Lloyd consulted with [facility] about patient. [facility] will transfer call to Cardiology. 1125 - Dr. Lloyd consulted with DEVENDRA Lundberg for [facility], about patient. Toño states have Dr. Li call [facility] after see patient. 1126 - Dr. Li arrived in ED to see patient. 1134 - Dr. Lloyd and Dr. Li consulted with patient's daughter, REHANA, about patient's code status. Daughter agrees with making the patient DNR. 1141 - Dr. Lloyd consulted with Dr. Trevino about patient. Dr. Trevino states admit the patient. Daughter who states that she has medical power of cyber security instructor asks that her mother be made DNR and comfort measures only. Pt discussed with Dr Trevino who asked that pt be admitted to ICU with comfort measures and he will see pt there soon. Dr Li advised to keep pt in the ICU here and that pt was not stable for transfer. Toño at [facility] was notified by Dr Li. 1220 - Dr. Lloyd spoke with Dr. Trevino about patient's pressor drip. Dr. Trevino states titrate drip per protocol. 1432 - Dr. Lloyd called time of at 1432. 1437 - Dr. Lloyd informed Dr. Trevino about patient passing away. 1501 - Dr. Lloyd removed intubation. Result Diagrams: 06/23/19 11:10 06/23/19 11:10 - EKG 1 Time of EKG reading by physician:: 10:36 EKG Read and Signed by:: Mesfin Lloyd EKG Interpretation (*Must complete 3 of following elements*): Abnormal (inferolateral injury pattern; ACUTE ID / STEMI; consider right ventricular involvement in acute inferior infarct) Rate: 45 Rhythm: sinus bradycardia with complete heart block and Wide QRS rhythm Grant: normal Comments: nonspecific intraventricular block; anteroseptal infarct, possibly acute; - CONSULTS/PCP/HOSPITALIST Notification #1 *Consult/PCP/Hospitalist*: [facility] Time Discussed: 10:55 Reason/Comments: Dr. Lloyd consulted with [facility] about patient Consult Disposition: other (will transfer call to Cardio) #2 Consult: DEVENDRA Lundberg for [facility] Time Discussed: 10:56 Reason/Comments: Dr. Lloyd consulted with [facility] about patient. Consult Disposition: other (will call back after consulting with bobbin doffer.) #3 Consult: DEVENDRA Lundberg for [facility] Time Discussed: 11:09 Reason/Comments: Dr. Lloyd consulted with [facility] about patient. Consult Disposition: other (Toño states patient is having a STEMI. Toño states the bobbin doffer wants Dr. Lloyd to consulted the bobbin doffer in house and have a head CT done on the patient prior to transfer. Toño states patient will not go to the [facility] and will be admitted by [facility].) Procedures - INTUBATION Time of Intubation: 10:54 Intubation Method: orotracheal Equipment: Glidescope Tube Size (cm): 7.5 Pretreated with 100% Oxygen?: Yes Breath Sounds after Intubation: equal ETT Primary Tube Confirmation: Capnometry CO2 Change, Direct Visualization, Chest Rise and Fall Intubation Complications: oral-unsuccessful attempt (1) Vent Settings: See Respiratory Therapy Notes Departure - Departure Date of Disposition Decision: 06/23/19 Time of Disposition Decision: 14:32 DIAGNOSIS: STEMI (ST elevation myocardial infarction), Altered mental status, Bradycardia Disposition: 20 Certified Medical Emergency: Emergent Condition: - Critical Care Note This patient required my direct & personal management of CC.: Yes Total Time (mins): 61 Critical Care Statement: This patient required my direct personal management to treat or rule out processes, the absence of which, could potentiallly result in sudden, clinically significant life or limb threatening deterioration. Attestation - Physician/ JASMIN Attestation Patient care was provided by Advanced Practice Provider:: No The physician spent face to face time with patient:: Yes Advanced Practice Provider documentation review:: Supervising physician onsite and consulted in the evaluation and care of this patient. The physician did have a face to face encounter with the patient. This chart was documented by the devante scribe, (Helen Ricci Scribe) and accurately reflects the services I performed and decisions made by me, Mesfin Lloyd MD, as attested by the provider's signature.
[2019-06-23] MEDS ORDERED: DOPAMINE 800 MG/D5W 800 MG/500 ML IV.SOLN IV SCH (12:00)
[2019-06-23] MEDS ORDERED: ATROPINE SYRINGE ONE (12:00)
[2019-06-23] MEDS ORDERED: EPINEPHRINE 4 MG in D5W 250 ML IV SCH (12:00)
[2019-06-23] MEDS ORDERED: LEVOPHED 8 MG in D5 1/2 NS 250 ML IV SCH ×4 (12:00)
--- NOTE | 2019-06-23 12:02 | Diag Imaging Result Doc PS360 ---
EXAM: CHEST/ABD TUBE PLACEMENT 06/23/2019 HISTORY: ETT / NG placement TECHNIQUE: AP portable chest at 1152 COMMENT: There is an endotracheal tube with its tip at thoracic inlet and an NG tube which passes below the diaphragm into the stomach. There is some platelike opacity in the right upper lobe which has not changed since 12/26/2018 and is probably fibrotic. There is some ill-defined opacity in the left base which was not previously present and may be due to atelectasis. IMPRESSION: NG tube in the stomach. Endotracheal tube in satisfactory position. Electronically signed by Americo Villafuerte 06/23/2019 12:00 PM
[2019-06-23 12:06] LABS: ALLEN TEST NO; BLOOD TYPE ARTERIAL; HCO3-(ACT) 13.3 mmoll (20.0-26.0); METHB 0.9 % (0.0-1.5); O2(CT) 15.1 mL/dL (15.0-23.0); O2HB 98.4 % (95.0-99.0); PCO2(98.6) 30 mmHg (35-45); PO2(98.6) 579 mmHg (60-100); SAMPLE BLOOD; SAO2 100.7 % (95.0-100.0); SRATE 16 BPM; THB 9.7 g/dL (11.5-17.4); TVOL 450 mL
[2019-06-23 12:07] LABS: MODALITY VENTILATOR
--- NOTE | 2019-06-23 12:12 | EKG Report ---
Test Performed on : 06/23/2019 10:36:10 AM Test Reason : unresponsive Blood Pressure : / mmHG Vent. Rate : 045 BPM Atrial Rate : 054 BPM P-R Int : 000 ms QRS Dur : 126 ms QT Int : 478 ms P-R-T Axes : 000 043 093 degrees QTc Int : 413 ms Sinus bradycardia. with complete heart block. and Wide QRS rhythm. Nonspecific intraventricular block Anteroseptal infarct , possibly acute Inferolateral injury pattern ACUTE MD / STEMI Consider right ventricular involvement in acute inferior infarct Abnormal ECG When compared with ECG of 28-DEC-2018 06:16, Wide QRS rhythm. has replaced Sinus rhythm. Vent. rate has decreased BY 25 BPM Unconfirmed Result
[2019-06-23 12:31] LABS: ALBUMIN 2.8 g/dL (3.5-5.0); CALCIUM 8.5 mg/dL (8.8-10.2); CREATININE 1.5 mg/dL (0.5-0.9); POTASSIUM 5.2 mmol/L (3.5-5.1); TOTAL BILIRUBIN 0.43 mg/dL (0.20-1.00); TOTAL PROTEIN 5.7 g/dL (6.3-8.3)
[2019-06-23 13:05] LABS: BASO# 0.02 X1000 (0.0-0.2); BASO% 0.2 % (0.0-0.8); HEMOGLOBIN 9.5 g/dL (12.0-16.0); IMM GRAN# 0.07 X1000 (0.0-0.04); IMM GRAN% 0.7 % (0.0-0.5); LYMPH# 4.81 X1000 (1.2-3.4); LYMPH% 48.5 % (20.5-51.1); MCH 26.2 PG (27-31); MCHC 30.6 g/dL (33-37); MCV 85.6 FL (81-99); MONO# 0.36 X1000 (0.11-0.59); MONO% 3.6 % (1.7-9.3); NEUT# 4.56 X1000 (1.4-6.5); PLT 167 X1000 (130-400); RBC 3.62 XMIL (4.2-5.4); RDW 17.5 % (11.5-14.5); WBC 9.92 X1000 (4.8-10.8)
[2019-06-23] MEDS ORDERED: NS 1,000 ML IV SCH (13:15)
[2019-06-23] MEDS ORDERED: NS 2,000 ML IV SCH (13:15)
[2019-06-23 14:29] VITALS: BP 44/30
--- NOTE | 2019-06-23 19:50 | CONSULTATION ---
DATE OF CONSULTATION: 06/23/2019 IMPRESSION: 1. Patient unresponsive and hypotensive, probably related to cardiogenic shock. 2. Acute ST-elevation myocardial infarction, with electrocardiogram indicating inferior myocardial infarction as well as ST elevation in leads V3 through V5. 3. Dementia. 4. Diabetes mellitus, type 2, requiring insulin for control. 5. Hypertension. 6. Chronic kidney disease. RECOMMENDATIONS: Aggressiveness of medical care discussed at length with the patient's daughter, who has [id number]. Given patient's age, poor functional status, cardiogenic shock, and unresponsive state in the setting of ST elevation myocardial infarction, prognosis for meaningful recovery is very limited. After further discussion with the patient's daughter, she elected to make the patient a "Do Not Resuscitate", and expressed a desire to pursue comfort measures. This certainly seems to me to be the most reasonable course of action. HISTORY: This 88-year-old, -[place] female, with past history of dementia, type 2 diabetes mellitus, requiring insulin for control, hypertension, and chronic kidney disease, was brought to the emergency room from the intermediate after she was found unresponsive and hypotensive. She has fairly significant dementia and lives in a intermediate. She performed some therapy and was later found to be unresponsive. EMS was summoned. She was intubated and brought to the emergency room for evaluation. She remains unresponsive and has developed progressive hypotension and bradycardia. Intravenous pressors have been initiated. ECG demonstrates evidence of ST elevation myocardial infarction. PAST MEDICAL HISTORY: 1. Dementia. 2. Type 2 diabetes mellitus, requiring insulin. 3. Hypertension. 4. Chronic kidney disease. PAST SURGICAL HISTORY: Includes hysterectomy. ALLERGIES: She has no known drug allergies. MEDICATIONS PRIOR TO ADMISSION: As listed. SOCIAL HISTORY: She is quite debilitated with dementia. She resides in a intermediate. She is a former smoker. FAMILY HISTORY: Negative for premature coronary disease. REVIEW OF SYSTEMS: Not obtainable given patient's condition. PHYSICAL EXAMINATION: General: An elderly female, intubated and nonresponsive. Vital Signs: Blood pressure 68/33. Heart rate 62. HEENT: Mucous membranes are moist. Neck: Supple without discernible jugular venous distention. Chest: Clear to auscultation anteriorly. Cardiac: Reveals a regular rate and rhythm without appreciable murmur or gallop. Abdomen: Soft. Bowel sounds audible. Extremities: Without edema. LABORATORY DATA: Includes a white blood cell count of 9.92, hematocrit 31.0, hemoglobin 9.5, platelet count 167,000. Sodium 146, potassium 5.2, chloride 108, carbon dioxide 16, BUN 30, creatinine 1.5, glucose 315. Troponin T 0.027. EKG demonstrates sinus bradycardia with nonspecific interventricular conduction block, inferolateral injury pattern. Consider right ventricular involvement. cc: MD Deonte Munroe MD
--- NOTE | 2019-06-23 23:20 | DISCHARGE SUMMARY ---
ADMISSION DATE: 06/23/2019 DISCHARGE DATE: HISTORY OF PRESENT ILLNESS: Ms. Slater was brought to the emergency room from [facility], and she had acute myocardial infarction. She was in hemodynamic shock and she was not responding. She was in respiratory failure. She was intubated and placed on the ventilator. She was seen by Dr. Li in the emergency room as well as the ER physician, Dr. Lloyd. NG tube was also placed in. X-ray showed the NG tube was in the stomach and endotracheal tube was in satisfactory position. LABORATORY DATA: In the hospital ABGs revealed pH 7.2, pCO2 of 30, pO2 of 579. Her lactate level was 8.10, indicating the presence of sepsis. She also had a glucose of 321. She had severe respiratory acidosis, but probably metabolic acidosis with that much high lactic acid. ProBNP was 2180. DIAGNOSTIC DATA: EKG showed complete heart block with massive anteroseptal and anterolateral wall myocardial infarction. The heart rate was in the 40s. HOSPITAL COURSE: She was initially managed by Dr. Lloyd in the ER. He told the family that she was in very poor general condition. She could not be transferred to [place] even though she had acute myocardial infarction with complete heart block. She was intubated. She was in hemodynamic shock. Pressor agents were started. Her pressure was monitored; however, she succumbed and her heart rate started going down, and she had a cardiac arrest. The patient at around 2:45 and was pronounced. FINAL DIAGNOSES: 1. Acute myocardial infarction with cardiogenic shock. 2. Diabetes, insulin-dependent. 3. Congestive heart failure. cc: Deonte Trevino MD
== END 2019-06-23 14:32 | disposition expired ==
LOC: SUPCPDRO → ED 10:34 → EDIPHOLD 12:25 → ED 14:32 → EDIPHOLD 14:32
PROVIDERS: ATTEND Internal Medicine